=== PATIENT | female | born 1960 | race Caucasian/White ===

== ENCOUNTER 2024-06-02 06:37 | Emergency (ER) | payer OTHER, SELFPAY ==
[2024-06-02 06:37] VITALS: BMI 41.1
[2024-06-02 06:50] VITALS: BP 160/82; PULSE 69; RESP 18; TEMP 36.7; O2SAT 97
--- NOTE | 2024-06-02 06:54 | XR_ITS ---
Examination: Humerus 2 views right Technique: Humerus, AP lateral 2 views Date and time of exam: June 02, 2024 0714 hours INDICATIONS: Patient fell today with injury to the shoulder, shoulder pain. FINDINGS: Acute fractures right humeral neck and head, displacement of the greater tuberosity of the humeral head No shoulder dislocation IMPRESSION: Acute fractures humeral head and neck
--- NOTE | 2024-06-02 08:54 | PD.EDUPEX ---
Upper Extremity Injury RME/HPI General Chief Complaint: Extremity Injury, Upper Stated Complaint: FELL, RIGHT ARM INJURY Time Seen by Provider: 06/02/24 06:40 Arrival date/time: 06/02/24 06:37 63-year-old female presents emergency department today complaints of fall at work today patient reports right upper arm pain patient ports no head or neck injury Limitations: no limitations Related Data Home Medications ?Medication ?Instructions ?Recorded ?Confirmed cyclobenzaprine 10 mg tablet 10 mg PO TID PRN Pain 02/18/19 02/18/19 gabapentin 600 mg tablet 600 mg PO BID 02/18/19 02/18/19 hydrocodone 7.5 mg-acetaminophen 1 tab PO Q6H PRN Pain 02/18/19 02/18/19 325 mg tablet ([place]) ibuprofen 800 mg tablet 800 mg PO TID PRN Pain 02/18/19 02/18/19 lisinopril 5 mg tablet 5 mg PO QDAY 02/18/19 02/18/19 loratadine 10 mg tablet (Claritin) 10 mg PO QDAY PRN Allergic Symptoms 02/18/19 02/18/19 Previous Rx's ?Medication ?Instructions ?Recorded hydrocodone 5 mg-acetaminophen 325 1 tab PO BID PRN pain #10 tabs 06/02/24 mg tablet ibuprofen 800 mg tablet 800 mg PO TID PRN pain #30 tabs 06/02/24 Allergies Allergy/AdvReac Type Severity Reaction Status Date / Time adhesive tape Allergy Intermediate Rash Verified 02/19/19 10:21 fluconazole Allergy Intermediate Rash Verified 02/19/19 10:21 Review of Systems Review of Systems Systems Reviewed: All systems reviewed, normal except as documented Constitutional Constitutional: Reports system reviewed and no additional complaints, except as documented, Denies fever(s) and Denies headache(s) Eyes Eyes: Reports system reviewed and no additional complaints, except as documented and Denies blurry vision ENT Ears, Nose, Mouth, and Throat: Reports system reviewed and no additional complaints, except as documented, Denies headache(s), Denies nasal congestion and Denies nasal discharge Cardiovascular Cardiovascular: Reports system reviewed and no additional complaints, except as documented, Denies chest pain and Denies dyspnea Respiratory Respiratory: Reports system reviewed and no additional complaints, except as documented, Denies chest congestion, Denies cough and Denies dyspnea Gastrointestinal Gastrointestinal: Reports system reviewed and no additional complaints, except as documented and Denies abdominal pain Musculoskeletal Musculoskeletal: Reports system reviewed and no additional complaints, except as documented, Reports arthralgias and Denies deformity Integumentary/Breasts Skin/Breast: Reports system reviewed and no additional complaints, except as documented and Denies rash Neurologic Neurologic: Reports system reviewed and no additional complaints, except as documented, Reports as per HPI and Denies headache(s) Past Medical History Past Medical History NEUROLOGIC: Negative Neurological Disorders CARDIAC: Negative Cardiac Disorders ED Exam General Limitations: Present no limitations General appearance: Present alert and in no apparent distress Head Head exam: Present atraumatic, normocephalic and normal inspection Eye Eye exam: Present normal appearance, PERRL and EOMI; Absent conjunctival injection ENT ENT exam: Present normal exam, normal oropharynx and mucous membranes moist Neck Neck exam: Present normal inspection, full ROM and trachea midline Chest Chest inspection: Present normal inspection and symmetric chest wall rise Respiratory Respiratory exam: Present normal lung sounds bilaterally Cardiovascular Cardiovascular exam: Present regular rate, normal rhythm and normal heart sounds Abdominal Exam Abdominal exam: Present soft and normal bowel sounds Extremities Exam Extremities exam: Present tenderness (Right arm pain) and normal capillary refill Back Exam Back exam: Present normal inspection and full ROM Neurological Exam Neurological exam: Present alert, oriented X3 and CN II-XII intact Psychiatric Psychiatric exam: Present normal affect and normal mood Skin Skin exam: Present warm, dry, intact and normal color Course Quality Measures none Orders Category Date Time Status sling [Splint / Immobilizer] STAT Care 06/02/24 07:44 Completed Consult to Orthopedic Stat Cons 06/02/24 07:44 Ordered XR humerus RT min 2V Stat Exams 06/02/24 06:54 Completed Vital Signs Vital signs: Vital Signs Temperature 98.1 F 06/02/24 06:50 Pulse Rate 69 06/02/24 06:50 Respiratory Rate 18 06/02/24 06:50 Blood Pressure 160/82 H 06/02/24 06:50 Pulse Oximetry (%) 97 06/02/24 06:50 Oxygen Delivery Method Room Air 06/02/24 06:50 O2 saturation 97% room air within normal limits Extremity Injury MDM Narrative MDM Narrative:: 63-year-old female presents emergency department today complaints of fall at work today patient reports right upper arm pain patient ports no head or neck injury On exam patient has tenderness right upper arm patient reports pain is worse with movement Imaging of right arm obtained patient has fracture proximal humerus/humeral head/neck Patient placed in a sling and reviewed images with patient patient states will follow-up with specialist tomorrow Consultation: I spoke with Dr. Genet corrales states will see the patient as office tomorrow 10:00 patient discharged with pain medication Patient data External records reviewed:: [facility] previous records Clinical information provided by:: patient Social determinants that could affect healthcare access:: none Patient has the following chronic illnesses:: None How is presenting disease/condition affected by chronic disease/condition?: no chronic disease Evaluation data The following diagnostics were reviewed and interpreted by me:: radiology exam(s) Lab and/or radiology exams considered but not ordered:: Radiology obtain Interpretation Summary: Reviewed by me Medications / Prescriptions Medications or Prescriptions considered but not ordered:: Given Medication administrations:: Given Consultations Consultation(s) initiated? (list below): Yes Consultation #1 (Physician, Specialty, Details): Dr Vegas Diagnosis Upper Extremity Injury Differential Diagnosis: dislocation of shoulder, fracture of humerus and other (Shoulder sprain, shoulder fracture) Most likely diagnosis given after review of the tests above:: Shoulder fracture Admission Indicated Admission indicated?: not indicated Admission Request Was there a request for admission?: No Disposition Plan Disposition Plan: Discharge Discharge Attestation Discharge Attestation: The patient and all family members were given an opportunity to ask questions and understood the discharge instructions. Discharge instructions specifically effects, indications for sooner follow up or return to the emergency department, and the expected course of current diagnosis. Patient condition: Stable Discharge Plan Plan Patient Disposition: HOME (Self Care) Disposition Comment: Stable Prescriptions/Referrals Prescriptions/Med Rec: New ibuprofen 800 mg tablet 800 mg PO TID PRN (Reason: pain) Qty: 30 0RF hydrocodone-acetaminophen 5-325 mg tablet 1 tab PO BID MDD 10 PRN (Reason: pain) Qty: 10 0RF No Action cyclobenzaprine 10 mg Tablet 10 mg PO TID PRN (Reason: Pain) gabapentin 600 mg Tablet 600 mg PO BID ibuprofen 800 mg Tablet 800 mg PO TID PRN (Reason: Pain) hydrocodone-acetaminophen [[place]] 7.5-325 mg Tablet 1 tab PO Q6H PRN (Reason: Pain) loratadine [Claritin] 10 mg Tablet 10 mg PO QDAY PRN (Reason: Allergic Symptoms) lisinopril 5 mg Tablet 5 mg PO QDAY Referrals: Aj Vegas MD [Physician] - 06/03/24 10:00 am Problem List Clinical Impression: Fracture of neck of humerus Patient/Caregiver Discharge Instructions Education Materials: ED Fracture, Shoulder Additional Instructions: Please see orthopedist tomorrow 10 AM for worsening symptoms return immediately Print Language: Latvian Stand Alone Forms: Luiza Award Info., Patient Portal Info Letter PA/NITROGLYCERIN SUPERVISOR Supervising Physician PA/NITROGLYCERIN SUPERVISOR Supervising Physician: Dr. Graham
== END 2024-06-02 09:17 | disposition home or self-care (01) ==
PROVIDERS: Emergency Provider Emergency Medicine; PCP Family Medicine
DX: S42.211A Unspecified displaced fracture of surgical neck of right humerus, initial encounter for closed fracture (principal); W19.XXXA Unspecified fall, initial encounter; Y99.0 Civilian activity done for income or pay
CPT/HCPCS: 73060; 99283; A4565

== ENCOUNTER → 2025-01-27 | Outpatient (CLI) | payer MEDICARE, BC, SELFPAY ==
[2025-01-27 17:05] LABS: COVID-19 Antigen (In-House) Positive (Negative)
== END | disposition home or self-care (01) ==
LOC: COPL 14:55
PROVIDERS: PCP Family Medicine; Referring Provider Family Medicine; Visit Provider Family Medicine
DX: Z20.828 Contact with and (suspected) exposure to other viral communicable diseases (principal)
CPT/HCPCS: 87811

== ENCOUNTER → 2025-03-08 | Outpatient (CLI) | payer MEDICARE, BC, SELFPAY ==
--- NOTE | 2025-03-08 10:00 | XR_ITS ---
Examination: Screening digital mammography, bilateral Computer aided detection 3-D breast Tomosynthesis, bilateral Date and time of exam: 03/08/2025, 9:42 a.m. Comparisons: 05/14/2019 Indications: Screening Technique: Nonmagnified MLO, CC views of the breasts to been obtained, reconstructed from 3-D Tomosynthesis images. R2 computer aided detection program utilized for evaluation of suspicious masses and/or abnormal calcifications. 3-D Tomosynthesis images obtained. Technologist: Findings: There are scattered areas of fibroglandular density. Asymmetry central left breast, 5 cm from the nipple on the cc view. Otherwise, no evidence of abnormal masses or suspicious calcifications. Impression: Left breast asymmetry as above. Spot compression views and possible ultrasound evaluation recommended. BI-RADS category 0: Incomplete assassment; need additional imaging evaluation
== END | disposition home or self-care (01) ==
PROVIDERS: Referring Provider Family Medicine; Visit Provider Family Medicine
DX: Z12.31 Encounter for screening mammogram for malignant neoplasm of breast (principal); N64.89 Other specified disorders of breast; R92.8 Other abnormal and inconclusive findings on diagnostic imaging of breast
CPT/HCPCS: 77063; 77067

== ENCOUNTER → 2025-04-22 | Outpatient (CLI) | payer MEDICARE, BC, SELFPAY ==
--- NOTE | 2025-04-22 11:00 | XR_ITS ---
Examination: Breast ultrasound, unilateral, left Date and time of exam: April 22, 2025, 1112 hours INDICATIONS: Mammogram March 08, 2025 asymmetry central left breast 5 cm from the nipple Technique: Real-time briggs scale ultrasonographic imaging performed left breast including all 4 quadrants as well as nipple retroareolar and axillary region. Findings: 6:00 oval mass lobular margins 4 x 3 mm IMPRESSION: BI-RADS Category 3: Probably benign findings Recommend 1 additional 6-month left breast sonogram follow-up to document stability of 6:00 nodule described above.
--- NOTE | 2025-04-22 11:30 | XR_ITS ---
Examination: Diagnostic digital mammography, unilateral, left Computer aided detection 3-D breast Tomosynthesis, unilateral Date and time of exam: April 23, 2025, 1124 hours INDICATIONS: Mammogram March 08, 2025 asymmetry central left breast 5 cm from the nipple on the CC view Technique: Nonmagnified MLO, CC views of the left breast have been obtained, reconstructed from 3-D Tomosynthesis images. R2 computer aided detection program utilized for evaluation of suspicious masses and/or abnormal calcifications. 3-D Tomosynthesis images obtained. Findings: Scattered areas of fibroglandular density Suspicious nodule with microcalcifications 12 o'clock position left breast, 24 mm Impression: BI-RADS category 4: Suspicious for malignancy Suspicious mass 12 o'clock position left breast with suspicious microcalcifications, biopsy is needed to exclude breast carcinoma, this mass is amenable to stereotactic breast biopsy for diagnosis
== END | disposition home or self-care (01) ==
PROVIDERS: PCP Family Medicine; Referring Provider Family Medicine; Visit Provider Family Medicine
DX: R92.322 Mammographic fibroglandular density, left breast (principal); N63.25 Unspecified lump in the left breast, overlapping quadrants
CPT/HCPCS: 76641; 77061; 77065; G0279

== ENCOUNTER 2025-04-26 13:51 | Emergency (ER) | payer MEDICARE, BC, SELFPAY ==
[2025-04-26 14:49] VITALS: BP 154/84; PULSE 64; RESP 17; TEMP 36.3; O2SAT 97; BMI 43.0
--- NOTE | 2025-04-26 15:45 | PD.EDWOUND ---
ED Wound/Laceration-RME/HPI General Chief Complaint: Wound/Laceration Stated Complaint: LACERATION TO RIGHT HAND Time Seen by Provider: 04/26/25 13:58 Arrival date/time: 04/26/25 13:51 This is a case of 64-year-old female with history of chronic pain came in in the emergency room due to laceration on the right hand patient states around 12 midnight she accidentally cut her right hand with a glass sustaining injury patient tetanus shot is not up to date Limitations: no limitations Related Data Home Medications ?Medication ?Instructions ?Recorded ?Confirmed cyclobenzaprine 10 mg tablet 10 mg PO TID PRN Pain 02/18/19 02/18/19 gabapentin 600 mg tablet 600 mg PO BID 02/18/19 02/18/19 hydrocodone 7.5 mg-acetaminophen 1 tab PO Q6H PRN Pain 02/18/19 02/18/19 325 mg tablet ([place]) ibuprofen 800 mg tablet 800 mg PO TID PRN Pain 02/18/19 02/18/19 lisinopril 5 mg tablet 5 mg PO QDAY 02/18/19 02/18/19 loratadine 10 mg tablet (Claritin) 10 mg PO QDAY PRN Allergic Symptoms 02/18/19 02/18/19 Previous Rx's ?Medication ?Instructions ?Recorded hydrocodone 5 mg-acetaminophen 325 1 tab PO BID PRN pain #10 tabs 06/02/24 mg tablet ibuprofen 800 mg tablet 800 mg PO TID PRN pain #30 tabs 06/02/24 cephalexin 500 mg capsule 500 mg PO Q8H #30 caps 04/26/25 mupirocin 2 % topical ointment 1 applic topical BID #22 grams 04/26/25 (Centany) Allergies Allergy/AdvReac Type Severity Reaction Status Date / Time adhesive tape Allergy Intermediate Rash Verified 04/26/25 13:54 fluconazole Allergy Intermediate Rash Verified 04/26/25 13:54 Review of Systems Review of Systems Systems Reviewed: All systems reviewed, normal except as documented Past Medical History Past Medical History NEUROLOGIC: Positive Migraine (MAYBE DUE TO B/P) and Head Trauma (05/23 [facility] HAD SURG DUE TO COMPRESS FRACTURE VERTEBRAE); Negative Neurological Disorders or Seizures CARDIAC: Positive Heart Murmur (At age 19), Edema and Hypertension (TAKES LISINOPRIL); Negative Cardiac Disorders or Congestive Heart Failure RESPIRATORY: Negative Chronic Obstructive Pulmonary Disease (COPD) GASTROINTESTINAL: Positive Gastrointestinal Disorders, Irritable Bowel, Hemorrhoids (NO SURG), Gastroesophageal Reflux Disease (USE OTC) and Obesity GENITOURINARY: Negative Genitourinary Disorders or Renal Disease REPRODUCTIVE: Positive Endometriosis (PARTIAL ABD HYSTERECTOMY) and Previous Pregnancies (X7) MUSCULOSKELETAL: Positive Musculoskeletal Disorders, Arthritis, Degenerative Disk Disease and Fractures (DISC T 11 LEFT ANKLE HAD CAST X2) ENT: Positive Head Trauma (05/23 [facility] HAD SURG DUE TO COMPRESS FRACTURE VERTEBRAE); Negative Cataracts ENDOCRINE: Positive Endocrine Disorders; Negative Diabetes Mellitus Type 1 or Diabetes Mellitus Type 2 HEMATOLOGIC: Positive Blood Disorders and Anemia (); Negative Clotting Problems PSYCHO/SOCIAL: Positive Depression and Anxiety OTHER HISTORY: Positive Falls (07/21), Chicken Pox and Mumps; Negative Hospitalization, Autoimmune Disease, Shingles, Blood Transfusions, Blood Transfusion Reaction, Anesthesia Reactions, Chemotherapy, Radiation Therapy, MRSA, Measles or Cancer Family History FAMILY HISTORY: Positive Family Psychiatric Problems (MOTHER (DEPRESSION,ANXIETY)), Family Cardiac Disorders (FATHER (HEART)) and Family Surgery (MOTHER); Negative Family Respiratory Disorders, Family Gastrointestinal Problems, Family Cancer or Family Anesthesia Reaction Surgical History SURGICAL: Positive Tonsillectomy, Hysterectomy and Section (X1) Social History SMOKING STATUS: Never smoker ED Exam General Limitations: Present no limitations General appearance: Present alert, in no apparent distress and other (Patient is awake alert oriented not in distress nontoxic looking well-hydrated well nourished) Head Head exam: Present atraumatic, normocephalic and normal inspection Eye Eye exam: Present normal appearance, PERRL and EOMI ENT ENT exam: Present normal exam, normal oropharynx and mucous membranes moist Neck Neck exam: Present normal inspection, full ROM and trachea midline Chest Chest inspection: Present normal inspection and symmetric chest wall rise Respiratory Respiratory exam: Present normal lung sounds bilaterally Cardiovascular Cardiovascular exam: Present regular rate, normal rhythm and normal heart sounds Abdominal Exam Abdominal exam: Present soft and normal bowel sounds Extremities Exam Extremities exam: Present normal inspection and full ROM Back Exam Back exam: Present normal inspection and full ROM Neurological Exam Neurological exam: Present alert, oriented X3, CN II-XII intact, normal gait and reflexes normal; Absent motor sensory deficit Psychiatric Psychiatric exam: Present normal affect and normal mood Skin Skin exam: Present warm, dry, intact, normal color and other (3 cm flap laceration minimal bleeding no foreign body no tendon or bone injury no abscess no cellulitis no redness ROM intact neurovascular intact) Course Quality Measures none Orders Category Date Time Status Lidocaine 1% Vial 20 ml [Xylocaine 1% 20 ML] Med 04/26/25 15:10 Discontinued 20 ml IM X1 ONE TET,DIP/PERT AC (Adult)-Tdap [Boostrix Adult (Tdap) Med 04/26/25 15:10 Discontinued Vacc] 0.5 ml IMI .ONCE ONE Vital Signs Vital signs: Vital Signs Temperature 97.4 F 04/26/25 14:49 Pulse Rate 64 04/26/25 14:49 Respiratory Rate 17 04/26/25 14:49 Blood Pressure 154/84 H 04/26/25 14:49 Pulse Oximetry (%) 97 04/26/25 14:49 Oxygen Delivery Method Room Air 04/26/25 14:49 oxygen saturdatiion 97 room air PROCEDURES: Laceration Laceration 1: Site: hand Side (If applicable): right Size (cm): 3 Description: flap Depth: simple, single layer Local Anesthetic: lidocaine 1% Amount of anesthesia used (mL): 5 Pre-repair: wound explored, irrigated extensively and deep structures intact Skin layer closed with: nylon Suture size (cm): 4-0 Number of sutures: 8 Technique: simple, interrupted Wound / Laceration MDM Narrative MDM Narrative:: This is a case of 64-year-old female with history of chronic pain came in in the emergency room due to laceration on the right hand patient states around 12 midnight she accidentally cut her right hand with a glass sustaining injury patient tetanus shot is not up to date patient is awake alert oriented not in distress nontoxic looking well-hydrated well-nourished patient noted to have a 3 cm flap laceration in the right Hand near the fifth digit minimal bleeding no foreign body no tendon or bone injury no cellulitis no abscess no redness ROM intact neurovascular intact laceration repair was performed patient tolerated well the procedure seizure done by [place] protocol and via sterile technique patient will follow-up with PCP in 2 days for reevaluation and wound check and for any signs and symptoms of infection or worsening symptoms return to the emergency room immediately or call 911 Patient was discharged with comfortable condition walking with stable gait. Patient verbalized no further complains explained diagnosis and answered patient question. Patient is comfortable with the proposed management plan including the need to follow up with his/her primary care physician and any specialist if applicable Discussed patient for any urgent condition or worsening sx, He/She needed to go to emergency room immediately or call 911. Patient acknowledge the responsibility to follow up as instructed and to monitor her/his symptoms. For any persistence of the symptoms for more than 3-5 days return precaution advised. Discussed the result of the test and was given printed discharge instruction Patient data External records reviewed:: [facility] previous records Clinical information provided by:: patient Social determinants that could affect healthcare access:: none Patient has the following chronic illnesses:: None none How is presenting disease/condition affected by chronic disease/condition?: no chronic disease Evaluation data The following diagnostics were reviewed and interpreted by me:: other (specify) (None none) Lab and/or radiology exams considered but not ordered:: None Interpretation Summary: None Medications / Prescriptions Medications or Prescriptions considered but not ordered:: Given Medication administrations:: Medication Administration History Discontinued Medications Diphtheria/Tetanus/Acell Pertussis (Diphth,Pertuss(Acell),Tet Vac 0.5 Ml Syr- Adult) 0.5 ml IMi .ONCE ONE Stop: 04/26/25 15:11 Lidocaine HCl (Lidocaine Hcl 1% 20 Ml Vial) 20 ml IM X1 ONE Stop: 04/26/25 15:11 Given Consultations Consultation(s) initiated? (list below): No Diagnosis Wound Differential Diagnosis: laceration Most likely diagnosis given after review of the tests above:: Hand laceration Admission Indicated Admission indicated?: not indicated Explain why admission is indicated or not indicated:: Not indicate Admission Request Was there a request for admission?: No Admission Attestation Admission request attestation: not indicated Disposition Plan Disposition Plan: Discharge Discharge Attestation Discharge Attestation: The patient and all family members were given an opportunity to ask questions and understood the discharge instructions. Discharge instructions specifically effects, indications for sooner follow up or return to the emergency department, and the expected course of current diagnosis. Patient condition: Stable Discharge Plan Plan Patient Disposition: HOME (Self Care) Patient condition on transfer: Stable Prescriptions/Referrals Prescriptions/Med Rec: New cephalexin 500 mg capsule 500 mg PO Q8H Qty: 30 0RF mupirocin [Centany] 2 % ointment 1 applic topical BID Qty: 22 0RF No Action cyclobenzaprine 10 mg Tablet 10 mg PO TID PRN (Reason: Pain) gabapentin 600 mg Tablet 600 mg PO BID ibuprofen 800 mg Tablet 800 mg PO TID PRN (Reason: Pain) hydrocodone-acetaminophen [[place]] 7.5-325 mg Tablet 1 tab PO Q6H PRN (Reason: Pain) loratadine [Claritin] 10 mg Tablet 10 mg PO QDAY PRN (Reason: Allergic Symptoms) lisinopril 5 mg Tablet 5 mg PO QDAY ibuprofen 800 mg tablet 800 mg PO TID PRN (Reason: pain) Qty: 30 0RF hydrocodone-acetaminophen 5-325 mg tablet 1 tab PO BID MDD 10 PRN (Reason: pain) Qty: 10 0RF Problem List Clinical Impression: Hand laceration Patient/Caregiver Discharge Instructions Education Materials: Suture Care, ED Laceration, Hand: All Closures Additional Instructions: Follow-up with your primary care physician in 2 days for reevaluation and wound check in 10 days for removal of suture worsening symptoms or any emergent concerns such as redness swelling discharge from the wound discoloration fever chills return to the emergency room immediately or call 911 keep the wound clean and dry finish the course of antibiotic take Tylenol or Motrin as needed for pain Print Language: Turkish Stand Alone Forms: Luiza Award Info., Patient Portal Info Letter PA/AFTERSCHOOL BABYSITTER Supervising Physician PA/SHERRI Supervising Physician: Dr. Cardoso
[2025-04-26] MEDS: LIDOCAINE HCL 1% 20 ML VIAL IM (16:16)
== END 2025-04-26 16:41 | disposition home or self-care (01) ==
LOC: SERX 16:07
PROVIDERS: Emergency Provider Family Medicine
DX: S61.411A Laceration without foreign body of right hand, initial encounter (principal); W25.XXXA Contact with sharp glass, initial encounter
CPT/HCPCS: 12002; 96372; 99281; J3490